=== PATIENT | male | born 1955 | race Caucasian/White ===

== ENCOUNTER 2020-11-24 18:51 | Emergency (ER) | payer OTHER, SELFPAY ==
[2020-11-24 19:11] VITALS: BP 156/70; PULSE 81; RESP 18; TEMP 36.9; O2SAT 96; BMI 27.1
--- NOTE | 2020-11-24 19:15 | DI.RAD.S_ITS ---
PROCEDURE: XR HAND RT MIN 3V INDICATIONS: splinter TECHNIQUE: 3 views of the hand(s) acquired. COMPARISON: None. FINDINGS: Bones: No fracture or suspicious osseous lesion. Degenerative changes. Soft tissues: No radiopaque foreign body demonstrated. A No suspicious soft tissue calcifications. IMPRESSION: No radiopaque foreign body. Please note that would splinters are not typically visible on radiographs. Dictated by: Stefano Johnson M.D. on 11/24/2020 at 19:43 Approved by: Stefano Johnson M.D. on 11/24/2020 at 19:44
[2020-11-24 20:35] VITALS: BP 126/91; PULSE 72; O2SAT 98
[2020-11-24] MEDS: TET,DIPH,PERTUSS(ACELL),VAC/PF 0.5 ML SYRINGE IM (20:37)
--- NOTE | 2020-11-24 23:22 | ED.UPPEXIN ---
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 A co-worker slit a board back off the roof to him about 3:00 p.m.. He sustained a splinter to the right hand in his thenar eminence. He has pain at the site, slight erythema. He has foreign body sensation at the site. There is no numbness or weakness to the right digits. He is right-hand dominant. His last tetanus is unknown. there were no other injuries. Related Data Previous Rx's Medication Instructions Recorded cephalexin 500 mg PO Q8H #9 cap 11/24/20 Allergies Allergy/AdvReac Type Severity Reaction Status Date / Time robitussin with asa AdvReac Joint Pain Uncoded 11/24/20 19:15 Review of Systems Constitutional Comments: No recent illness, no other injuries. Musculoskeletal Comments: Right hand injuries noted HPI. Integumentary/Breasts Comments: Right hand puncture wound. Neurologic Comments: No numbness or weakness to his right hand. Patient History Medical History (Updated 11/24/20 @ 23:51 by Randy Car MD) No significant past medical history Surgical History (Updated 11/24/20 @ 23:46 by Randy Car MD) No significant past surgical history Social History Smoking Status: Current every day smoker Smoking Status: Current every day smoker Substance Use Type: does not use Exam Initial Vital Signs Initial Vital Signs: Vital Signs Temperature 98.4 F 11/24/20 19:11 Pulse Rate 81 11/24/20 19:11 Respiratory Rate 18 11/24/20 19:11 Blood Pressure 156/70 H 11/24/20 19:11 Pulse Oximetry 96 11/24/20 19:11 Const General: cooperative and healthy appearing Skin Other: puncture wound right thenar eminence. Palpable foreign body in the wound. A small eschar proximal to the puncture wound shows no suggestion of foreign body. Slight erythema around the wound, no discharge. Neuro Other: Alert orient x3. No motor sensory deficits to the right hand. Extrem Other: Right hand shows full range of motion at the wrist, and all digits. Procedures Foreign Body OTHER Time Out Performed: yes Site: right and hand Description of foreign body: other ( 1.5 cm Wood sliver) Sedation/Analgesia: other ( lidocaine 1% regional injection.) Technique: manual removal and removal with forceps Confirmed by:: palpation Complications: none Post-procedure exam: awake, alert Neurovascular: normal distal pulse and normal capillary fill Course Course Course Narrative: the site was cleansed and dressed following procedure. I started the patient on Keflex. Orders Ordered: ED Orders 11/24/20 19:15 XR hand RT min 3V Stat Discontinued Medications Diphtheria/Tetanus/Acell Pertussis (Tet,Diph,Pertuss(Acell),Vac/Pf 0.5 Ml Syringe) 0.5 ml IM .ONCE ONE Stop: 11/24/20 19:26 Last Admin: 11/24/20 20:37 Dose: 0.5 ml Documented by: KBROTEM Lidocaine/Sodium Bicarbonate (Lido 1%/Sod Bicarb 8.4% (10ml) 10 Ml Syringe) 10 ml INJ NOW ONE Stop: 11/24/20 23:17 Last Admin: 11/24/20 23:38 Dose: 10 ml Documented by: Vital Signs Vital signs: Vital Signs - 8 hr 11/24/20 19:11 11/24/20 20:35 Temperature 98.4 F Pulse Rate 81 72 Respiratory Rate 18 Blood Pressure 156/70 H 126/91 H Pulse Oximetry 96 98 MDM - Extremity Injury (Upper) Imaging Data Right hand x-ray:: Radiologist's Impression: Normal. No obvious foreign body. Discharge Plan Departure Patient Disposition: Home Clinical Impression: Acute foreign body of right hand Qualifiers: Encounter type: initial encounter Qualified Code(s): S60.551A - Superficial foreign body of right hand, initial encounter Instructions: DI for Removal of Foreign Body From Skin Activity Restrictions/Additional Instructions: Keflex 5 mg 3 times daily for 3 days as prescribed. Tylenol as necessary for pain. Cover the wound when physically active, Leave the wound uncovered when at rest. return to the ER as necessary. Prescriptions: New cephalexin 500 mg capsule 500 mg PO Q8H Qty: 9 RF: 0
[2020-11-24] MEDS: LIDO 1%/SOD BICARB 8.4% (10ML) 10 ML SYRINGE INJ (23:38)
[2020-11-24] MEDS: cephALEXin 250 MG CAPSULE 500 MG PO (23:51)
[2020-11-24 23:58] VITALS: BP 162/83; PULSE 63; RESP 18; O2SAT 98
== END 2020-11-25 00:04 | disposition home or self-care (01) ==
PROVIDERS: Emergency Provider Emergency Medicine
DX: S60.551A Superficial foreign body of right hand, initial encounter (principal); Z23 Encounter for immunization
CPT/HCPCS: 73130; 90471; 99283; 99284; 90715